=== PATIENT | female | born 1985 | race Caucasian/White ===

== ENCOUNTER 2020-07-13 05:25 | Inpatient (IN) | payer OTHER, SELFPAY ==
[~2020-07-13] VITALS: Ht 157.5 cm; Wt 90.7 kg
[2020-07-13 06:17] LABS: APPEARANCE,URINE CLEAR (CLEAR); BILIRUBIN,URINE NEGATIVE (NEGATIVE); BLOOD, URINE TRACE-I (NEGATIVE); COLOR,URINE YELLOW (YELLOW); LEUKOCYTE ESTERASE ,URINE NEGATIVE (NEGATIVE); NITRITE, URINE NEGATIVE (NEGATIVE); PH,URINE 5.5 (5.0-9.0); UGLUCOSE NEGATIVE (NEGATIVE)
--- NOTE | 2020-07-13 06:35 | NUR ---
PATIENT HAS BEEN SCREENED AND CATEGORIZED LOW NUTRITION RISK. PATIENT WILL BE SEEN WITHIN 7 DAYS OF ADMISSION. 07/19/[address]
[2020-07-13] MEDS ORDERED: ONDANSETRON 4 MG/2 ML VIAL ONE (07:24)
[2020-07-13] MEDS ORDERED: ceFAZolin 1,000 MG VIAL ONE (07:24)
[2020-07-13] MEDS ORDERED: METOCLOPRAMIDE 10 MG/2 ML INJ VIAL ONE (07:24)
[2020-07-13] MEDS ORDERED: ROCURONIUM 50 MG/5 ML VIAL IV ONE (07:24)
[2020-07-13] MEDS ORDERED: SUCCINYLCHOLINE CHLORIDE 200 MG/10 ML VIAL IVP ONE (07:24)
[2020-07-13] MEDS ORDERED: DEXAMETHASONE 10 MG/ML VIAL ONE (07:24)
[2020-07-13] MEDS ORDERED: MIDAZOLAM 2 MG/2 ML VIAL ONE (07:24)
[2020-07-13] MEDS ORDERED: PROPOFOL 200 MG/20 ML VIAL IV ONE (07:24)
[2020-07-13] MEDS ORDERED: SUGAMMADEX SODIUM 200 MG/2 ML VIAL IV ONE (07:24)
[2020-07-13] MEDS ORDERED: SEVOFLURANE 250 ML BTL INH ONE (07:24)
[2020-07-13] MEDS ORDERED: fentaNYL citrate 0.05 MG/ML VIAL ONE (07:24)
[2020-07-13] MEDS ORDERED: LIDOCAINE 2% 100 MG/5 ML SYR IVP ONE (07:24)
[2020-07-13] MEDS ORDERED: HYDROmorphone PFS 2 MG/ML SYR ONE (07:24)
[2020-07-13] MEDS ORDERED: ONDANSETRON 4 MG/2 ML VIAL IVP PRN (09:30)
[2020-07-13] MEDS ORDERED: HYDROmorphone 1 MG/ML AMP IVP PRN (09:30)
[2020-07-13] MEDS: HYDROmorphone PFS 2 MG/ML SYR ONE ×4 (09:30→10:00)
--- NOTE | 2020-07-13 11:34 | NUR ---
SOCIAL WORK NOTE: Patient's Orientation Unable To Assess Information Provided By SARAH BARBER - Comments SW WAS UNABLE TO MEET PATIENT AT BEDSIDE DUE TO MEDICAL CONDITION. SW WAS ABLE TO COMPLETE ASSESSMENT WITH PATIENT'S BROTHER, MIGUEL. SMITH VERIFIED THAT HE IS PATIENT'S BROTHER AND NOT . Director Immunology, Realtionship and Phone Number SARAH PATTERSON [phone] Healthcare Power of Comic Artist No Does Patient Have a POLST No Identifying Problems No Social Work Triggers Is A Social Work Consult Needed No Mandate Report Filed No Explanation Of Identifying Problems PATIENT IS A 34-YEAR-OLD FEMALE ADMITTED FOR UTERINE LEIYOMYONA. PATIENT HAS PMHX OF CARDIAC DISORDERS, DIABETES, AND HYPERTENSION. PATIENT REPORTED NO HISTORY OF SUBSTANCE ABUSE OR MENTAL HEALTH. Admitted From Home Pre-Admission Level Of Functioning Status Independent/Ambulatory Prior Resources/Services Used In Last 12 Months No Prior Resources Used Prior DME No Prior DME Used Dialysis Comments PER BROTHER, PATIENT DOES NOT RECEIVE DIALYSIS. Living Situation Lives With Family House Patient Had Caregiver No Home Support No Caregiver Issues Financial Issues No Known Financial Issue Referral To The Financial Counselor Needed No Factors/Needs No D/C Needs Identified Explanation And Or Other Factors Affecting/Possible DC Needs PATIENT'S BROTHER STATED THAT HE WOULD PICK PATIENT UP AT DISCHARGE. Pt/Rep Participated In Discharge Plan Yes Patient/Family Agress With Discharge Plan Yes Discharge Plan Comments TENTATIVE DISCHARGE PLAN IS FOR PATIENT TO RETURN HOME. DC Plan Status Initiated
[2020-07-13] MEDS ORDERED: KETOROLAC 30 MG/ML VIAL IVP PRN (15:00)
[2020-07-13] MEDS: LACTATED RINGERS 1,000 ML IV SCH (16:19)
[2020-07-13] MEDS: oxyCODONE/APAP 5/325 MG 1 TAB TAB PO PRN (20:15)
[2020-07-14] MEDS: LACTATED RINGERS 1,000 ML IV SCH (00:33)
[2020-07-14] MEDS: oxyCODONE/APAP 5/325 MG 1 TAB TAB PO PRN ×3 (04:26→18:14)
[2020-07-14 06:05] LABS: BASOPHILS % (AUTO) 0.2 % (0.0-2.0); EOSINOPHILS % (AUTO) 0.2 % (0.0-4.0); HEMATOCRIT 31.8 % (36-48); HEMOGLOBIN 10.5 g/dL (12.0-16.0); LYMPHOCYTES # (AUTO) 1.8 K/uL (2.5-16.5); LYMPHOCYTES % (AUTO) 15.3 % (20.5-51.1); MEAN CORPUSCULAR HEMOGLOBIN 28 pg (27-31); MEAN CORPUSCULAR HGB CONC 33 g/dL (33-37); MEAN CORPUSCULAR VOLUME 83.6 fL (80-94); MONOCYTES % (AUTO) 8.6 % (1.7-9.3); NEUTROPHILS # (AUTO) 9.1 K/uL (1.8-7.7); NEUTROPHILS % (AUTO) 75.7 % (42.2-75.2); PLATELET COUNT (AUTO) 252 K/uL (140-450); RED CELL DISTRIBUTION WIDTH 16.3 % (11.6-13.7)
[2020-07-15] MEDS: oxyCODONE/APAP 5/325 MG 1 TAB TAB PO PRN ×2 (00:34→06:38)
[2020-07-15] MEDS ORDERED: CAMERA MC ONE (00:40)
== END 2020-07-15 12:40 | disposition home or self-care (01) | DRG 513 ==
LOC: MMU 05:25 → EDSTATUS 07:30 → MFCC 10:21
PROVIDERS: ADMIT Obstetrics & Gynecology; ATTEND Obstetrics & Gynecology
PROC: 0UT20ZZ Resection of Bilateral Ovaries, Open Approach (ICD-10-PCS; 2020-07-13)
PROC: 0UT90ZL Resection of Uterus, Supracervical, Open Approach (ICD-10-PCS; principal; 2020-07-13 07:30)
PROC: 0UT70ZZ Resection of Bilateral Fallopian Tubes, Open Approach (ICD-10-PCS; 2020-07-13 07:30)
DX: N80.1 Endometriosis of ovary (principal); N73.6 Female pelvic peritoneal adhesions (postinfective); D25.9 Leiomyoma of uterus, unspecified; N92.0 Excessive and frequent menstruation with regular cycle; N94.6 Dysmenorrhea, unspecified; D64.9 Anemia, unspecified; Z20.828 Contact with and (suspected) exposure to other viral communicable diseases; I10 Essential (primary) hypertension; N83.209 Unspecified ovarian cyst, unspecified side
CPT/HCPCS: 36415; 81003; 85025; 86886; 86900; 86901; 87086; J0330; J0690; J1100; J1170; J1885; J2001; J2250; J2405; J2704; J2765; J3010; J3490; J7060; J7120; U0003-CS

== ENCOUNTER 2023-08-28 12:24 | Emergency (ER) | payer OTHER ==
[~2023-08-28] VITALS: Ht 157.5 cm; Wt 98.9 kg
[2023-08-28 12:59] VITALS: BP 157/91; PULSE 82; RESP 16; TEMP 98.7; O2SAT 96
[2023-08-28] MEDS ORDERED: NAPR-54 PO (13:55)
[2023-08-28] MEDS ORDERED: CYCL-711 PO (13:55)
[2023-08-28] MEDS ORDERED: LID5T TP (13:55)
[2023-08-28] MEDS ORDERED: KETOROLAC 30 MG/ML VIAL IM ONE (14:00)
[2023-08-28 14:30] VITALS: BP 130/80; PULSE 80; RESP 16; TEMP 98.7; O2SAT 99
== END 2023-08-28 14:30 | disposition home or self-care (01) ==
LOC: MED 12:24
DX: M25.561 Pain in right knee (principal); M54.30 Sciatica, unspecified side; I10 Essential (primary) hypertension; Z79.899 Other long term (current) drug therapy
CPT/HCPCS: 81025; 96372; 99283; J1885